=== PATIENT | female | born 1975 | race Two or more races ===

== ENCOUNTER 2019-12-02 21:46 | Emergency (ER) | payer MEDICARE, OTHER ==
[~2019-12-02] VITALS: Ht 165.1 cm; Wt 64.9 kg
[2019-12-02 22:33] VITALS: BP 117/78
[2019-12-02] MEDS ORDERED: KETOROLAC TROMETHAMINE INJ 60 MG/2 ML VIAL IM ONE (23:30)
[2019-12-02] MEDS ORDERED: DEXAMETHASONE SOD PHOSPHATE 10 MG/ML VIAL ONE (23:30)
[2019-12-02] MEDS ORDERED: MORPHINE SULFATE INJ 4 MG/ML DISP.SYRIN ONE (23:30)
[2019-12-02] MEDS ORDERED: ONDANSETRON 4 MG TAB.RAPDIS ONE (23:31)
[2019-12-02] MEDS: ONDANSETRON 4 MG TAB.RAPDIS SL ONE (23:40)
[2019-12-02] MEDS: MORPHINE SULFATE INJ 4 MG/ML DISP.SYRIN IM ONE (23:40)
[2019-12-02] MEDS: DEXAMETHASONE SOD PHOSPHATE 4 MG/ML VIAL IM ONE (23:40)
[2019-12-02] MEDS: KETOROLAC TROMETHAMINE INJ 60 MG/2 ML VIAL IM ONE (23:40)
== END 2019-12-03 00:14 | disposition home or self-care (01) ==
LOC: ER 21:55
DX: K08.89 Other specified disorders of teeth and supporting structures (principal)
CPT/HCPCS: 96372 ×2; 99284; J1100; J1885; J2270; Q0162

== ENCOUNTER 2020-10-11 16:12 | Emergency (ER) | payer MEDICARE, OTHER ==
[~2020-10-11] VITALS: Ht 165.1 cm; Wt 71.2 kg
[2020-10-11 16:17] VITALS: BP 112/72
[2020-10-11] MEDS ORDERED: ACET-2605 PO (16:25)
--- NOTE | 2020-10-11 16:33 | NUR ---
Patient discharged to home in stable condition. Written and verbal after care instructions given. Patient verbalizes understanding of instruction.
== END 2020-10-11 16:33 | disposition home or self-care (01) ==
LOC: ER 16:14
DX: B34.9 Viral infection, unspecified (principal)